=== PATIENT | male | born 1940 | race Caucasian/White ===

== ENCOUNTER → 2023-08-05 12:36 | Outpatient (BNVA) | payer OTHER, SELFPAY | PROVIDERS: Family Provider Emergency Medicine Emergency Medical Services; PCP Emergency Medicine Emergency Medical Services; Visit Provider Podiatrist Foot & Ankle Surgery | DX: L84 Corns and callosities (principal); L60.3 Nail dystrophy; M06.9 Rheumatoid arthritis, unspecified; L97.522 Non-pressure chronic ulcer of other part of left foot with fat layer exposed; S99.922A Unspecified injury of left foot, initial encounter; X58.XXXA Exposure to other specified factors, initial encounter | CPT/HCPCS: 11055; 99203 ==

== ENCOUNTER → 2023-08-17 10:57 | Outpatient (BNVA) | payer OTHER, SELFPAY | PROVIDERS: Family Provider Emergency Medicine Emergency Medical Services; PCP Emergency Medicine Emergency Medical Services; Visit Provider Podiatrist Foot & Ankle Surgery | DX: L84 Corns and callosities (principal); L60.3 Nail dystrophy; M06.9 Rheumatoid arthritis, unspecified; L97.522 Non-pressure chronic ulcer of other part of left foot with fat layer exposed | CPT/HCPCS: 99213 ==

== ENCOUNTER → 2023-09-13 13:01 | Outpatient (BNVA) | payer OTHER, SELFPAY | PROVIDERS: Family Provider Emergency Medicine Emergency Medical Services; PCP Emergency Medicine Emergency Medical Services; Visit Provider Podiatrist Foot & Ankle Surgery | DX: L84 Corns and callosities (principal); L60.3 Nail dystrophy; M06.9 Rheumatoid arthritis, unspecified; L97.522 Non-pressure chronic ulcer of other part of left foot with fat layer exposed | CPT/HCPCS: 99214 ==

== ENCOUNTER → 2023-10-06 09:36 | Day surgery (SDC) | payer OTHER, SELFPAY ==
--- NOTE | 2023-10-06 10:36 | SUR.PREOP ---
1010 patient here with son and wanting to speak to regarding pt's surgery today,brought pt and son to pre-op room to wait for Dr. Tomas(he is currently in OR) and instructed pt and son of this and verbalized understanding.1020 Dr Tomas in pre-op room talking to pt and son. 1025 pt and son are wanting to postpone surgery to another day. OR,PACU and admitting staff notified of this and all verbalized understanding
== END ==
PROVIDERS: PCP Emergency Medicine Emergency Medical Services; Visit Provider Podiatrist Foot & Ankle Surgery
DX: Z53.8 Procedure and treatment not carried out for other reasons (principal)
CPT/HCPCS: J2371; J2704

== ENCOUNTER 2023-11-30 14:21 | Inpatient (IN) | payer OTHER, SELFPAY ==
[2023-11-30] VITALS (9 sets, daily range): BP systolic 142–178; BP diastolic 78–96; PULSE 62–73; RESP 15–18; TEMP 36.3–36.8; O2SAT 90–96
--- NOTE | 2023-11-30 14:43 | XRR_ITS ---
PROCEDURE INFORMATION: Exam: XR Chest Exam date and time: 11/30/2023 3:16 PM Age: 83 years old Clinical indication: Cough and dyspnea; Additional info: Dyspnea/cough TECHNIQUE: Imaging protocol: Radiologic exam of the chest. Views: 1 view. COMPARISON: MR shoulder RT wo con* [id number] 04/17/2019 4:54 PM FINDINGS: Lungs: There is bilateral central peribronchial thickening and diffuse bilateral interstitial prominence. This could be an acute or chronic viral or atypical pneumonia. Some of this could be bronchitis or asthma. Some of this could be fibrosis. Otherwise, unremarkable. Pleural spaces: Unremarkable. No pleural effusion. No pneumothorax. Heart/Mediastinum: Unremarkable. No cardiomegaly. Bones/joints: Mild scoliosis with mild multilevel spondylosis. Severe bilateral shoulder arthritis. Otherwise, unremarkable. XR/XR chest 1V portable [id number] IMPRESSION: Bilateral peribronchial thickening and diffuse bilateral interstitial prominence. See above discussion.
--- NOTE | 2023-11-30 14:44 | ECG_ITS ---
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 Measurements Intervals [place] Rate: 76 P: 34 [place]: 154 QRS: -38 QRSD: 88 T: 142 QT: 395 QTc: 445 Interpretive Statements SINUS RHYTHM WITH OCCASIONAL VENTRICULAR PREMATURE COMPLEXES LEFT AXIS DEVIATION [QRS AXIS < -30] LEFT VENTRICULAR HYPERTROPHY AND ST-T CHANGE [VOLTAGE CRITERIA PLUS ST/T ABNORMALITY] No previous ECG available for comparison Electronically Signed On 11-30-2023 17:19:00 CDT by Daniel Lindsey M.D. [id number]
--- NOTE | 2023-11-30 14:53 | XRR_ITS ---
PROCEDURE INFORMATION: Exam: XR Left Knee Exam date and time: 11/30/2023 3:19 PM Age: 83 years old Clinical indication: Injury or trauma; Fall; Blunt trauma; Knee; Left TECHNIQUE: Imaging protocol: Radiologic exam of the left knee. Views: 3 views. COMPARISON: No relevant prior studies available. FINDINGS: Bones/joints: Abnormal extension of the left knee suggests soft tissue injury. 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 There is a space between the anterior portion of the femoral component of the arthroplasty and the tunica-biloxi femur measuring as much as 5 mm. This raises the possibility of loosening of this component of the arthroplasty. Other arthroplasty components are without complication. No fracture or vicente dislocation. Probable left knee joint effusion. Otherwise, unremarkable. Soft tissues: Possible thickening of the patellar tendon, so it could be injured. Otherwise, unremarkable soft tissues. Vasculature: Large amount of arterial calcification. XR/XR knee LT 3V* [id number] IMPRESSION: 1. Possible injury of the left patellar tendon. 2. Abnormal extension of the left knee suggests soft tissue injury. 3. Possible loosening femoral component left total knee arthroplasty. 4. Probable left knee joint effusion.
--- NOTE | 2023-11-30 14:56 | ED_ITS ---
HPI - Weakness 2 General: Chief complaint: Weakness Stated complaint: Fall/ Found on floor Time Seen by Provider: 11/30/23 14:27 Source: patient Mode of arrival: ambulatory History of Present Illness: 83-year-old male was found down in his h ome he been down on the floor for possibly several days. He had fallen been too weak to get up. Neighbors found him. His mouth is extremely dry he has areas that appear to have began to develop pressure ulcers on his buttock his heels and on his right hip. He is weak has difficult time ambulating he is aware of time place and person but still seems somewhat confused. He is not able to answer complicated patients. Son reported via phone to the nurse that he had spoken with him yesterday and he seemed okay. He states he does have difficulty communicating frequently at his baseline. He lives at home with an occasional assistance from family members. Complaint: generalized weakness Associated symptoms: Denies chest pain, chills, dysuria or fever(s) Review of Systems 2 Const: Denies: fever(s) or chills ENMT: Reports: throat pain Card: Denies: chest pain Resp: Denies: dyspnea GI: Denies: abdominal pain : Denies: dysuria, urinary frequency or urinary urgency Musc: Denies: neck pain or back pain Skin/Breast: Denies: rash PFSH ED 2 PFSH: Medical History (Updated 11/30/23 @ 18:04 by Smith Michael DO) Arthritis Rheumatoid arthritis Onychodystrophy Surgical History (Updated 11/30/23 @ 17:30 by Kiran Hardy MD) H/O knee surgery History of ankle surgery Physical Exam 2 Const: COMMON NORMALS: no acute distress GENERAL APPEARANCE: cooperative ORIENTATION/CONSCIOUSNESS: Yes awake HENMT: COMMON NORMALS: normocephalic, atraumatic and hearing grossly normal bilaterally HEAD & SCALP: normocephalic and atraumatic OTHER: Oral mucosa dry Resp: COMMON NORMALS: normal respiratory effort, No retractions, No use of accessory muscles and clear to auscultation bilaterally AUSCULTATION: clear to auscultation bilaterally Cardio: COMMON NORMALS: regular rate, regular rhythm and No murmurs present (Cardio) RATE: regular rate RHYTHM: regular rhythm GI: COMMON NORMALS: Soft to palpation and No hepatosplenomegaly present A USCULTATION: Yes normoactive bowel sounds PALPATION: Yes Soft to palpation, No Tenderness to palpation present (GI), No Guarding due to palpation present (GI) and Yes No hepatosplenomegaly present Extremity: OTHER: Early pressure ulcers at the heels and very slight redness on the right greater trochanter. Movement all extremities without pain Skin: OTHER: Skin breakdown along the gluteal cleft and on the scrotum. Blanching at the skin overlying the calcaneus bilaterally no skin breakdown at this point. Course 2 Vital Signs: Vital signs: Vital Signs Temperature 98.2 F 11/30/23 14:25 Pulse Rate 71 11/30/23 16:52 Respiratory Rate 16 11/30/23 14:25 Blood Pressure 156/92 11/30/23 16:52 Pulse Oximetry 93 11/30/23 16:52 Oxygen Delivery Me thod Room Air 11/30/23 16:52 MDM - Weakness Medical Decision Making Generalized weakness rhabdomyolysis hypernatremia. He is also has significant volume depletion. Will admit the patient. He does have some elevation of his liver enzymes as well as suspect this is from his volume depletion. Has been given IV fluids. CT of the chest abdomen pelvis shows a rectal mass suspicious for rectal carcinoma. This was all reviewed with Dr. Antony stephens written. Medical Records I reviewed the patient's medical records. Lab Data I reviewed the patient's lab results. 11/30/23 15:14 11/30/23 15:14 Radiology Impressions Chest X-Ray 11/30/23 14:43 IMPRESSION: Bilateral peribronchial thickening and diffuse bilateral interstitial prominence. See above discussion. Knee X-Ray 11/30/23 14:53 IMPRESSION: 1. Possible injury of the left patellar tendon. 2. Abnormal extension of the left knee suggests soft tissue injury. 3. Possible loosening femoral component left total knee arthroplasty. 4. Probable left knee joint effusion. Chest/Abdomen/Pelvis CT 11/30/23 16:10 IMPRESSION: No acute posttraumatic findings. IMPRESSION: 3.0 x 2.1 x 1.2 cm lobulated thickening in the left posterolateral rectal wall suggesting possible rectal carcinoma. Axial series 5, image 70, sagittal series 11, image 33. No acute posttraumatic findings. Head CT 11/30/23 16:10 IMPRESSION: 1. No acute intracranial findings. 2. Chronic changes as above. Laboratory Results WBC 9.29 10^3/uL (3.29-11.43) 11/30/23 15:14 RBC 5.72 10^6/uL (3.85-5.65) H 11/30/23 15:14 Hgb 16.80 g/dL (11.27-16.99) 11/30/23 15:14 Hct 53.3 % (37-53) H 11/30/23 15:14 MCV 93.2 fl (82-101) 11/30/23 15:14 MCH 29.4 pg (27-33) 11/30/23 15:14 MCHC 31.5 g/dL (30-55) 11/30/23 15:14 RDW 14.5 % (12.1-15.1) 11/30/23 15:14 Plt Count 251 10^3/cmm (157-399) 11/30/23 15:14 MPV 9.7 fL (7.4-10.4) 11/30/23 15:14 Neut % (Auto) 70.8 % 11/30/23 15:14 Lymph % (Auto) 13.9 % 11/30/23 15:14 [place] % (Auto) 14.7 % 11/30/23 15:14 Eos % (Auto) 0.1 % 11/30/23 15:14 Baso % (Auto) 0.3 % 11/30/23 15:14 Neut # (Auto) 6.57 10^3/uL (1.8-7.7) 11/30/23 15:14 Lymph # (Auto) 1.3 10^3/uL (0.8-4.8) 11/30/23 15:14 [place] # (Auto) 1.4 10^3/uL (0.2-0.9) H 11/30/23 15:14 Eos # (Auto) 0.0 10^3/uL (0.0-0.8) 11/30/23 15:14 Baso # (Auto) 0.0 10^3/uL (0.0-0.1) 11/30/23 15:14 Nucleated RBC % (auto) 0 % 11/30/23 15:14 Nucleated RBCs # 0.0 /100WBC 11/30/23 15:14 Sodium 154 mmol/L (136-145) H 11/30/23 15:14 Potassium 4.0 mmol/L (3.5-5.1) 11/30/23 15:14 Chloride 115 mmol/L (98-107) H 11/30/23 15:14 Carbon Dioxide 23 mmol/L (22-29) 11/30/23 15:14 Anion Gap 20.0 (5-19) H 11/30/23 15:14 BUN 82 mg/dL (8-23) H* 11/30/23 15:14 Creatinine 1.2 mg/dL (0.7-1.2) 11/30/23 15:14 GFR Calculation Not Reportable 11/30/23 15:14 Glucose 98 mg/dL (65-115) 11/30/23 15:14 Calculated Osmolality 343 mOsm/kg (285-295) H 11/30/23 15:14 Lactic Acid 2.4 mmol/L (0.5-2.2) H 11/30/23 15:14 Calcium 9.2 mg/dL (8.5-10.5) 11/30/23 15:14 Total Bilirubin 0.6 mg/dL (0.15-1.2) 11/30/23 15:14 AST 176 U/L (0-40) H 11/30/23 15:14 ALT 49 U/L (0-41) H 11/30/23 15:14 Alkaline Phosphatase 91 U/L (40-130) 11/30/23 15:14 Creatine Kinase 6712 U/L (39-308) H* 11/30/23 15:14 Troponin T Baseline 47 ng/L (0-15) H 11/30/23 15:14 Total Protein 7.3 g/dL (6.6-8.7) 11/30/23 15:14 Albumin 3.6 g/dL (3.5-5.2) 11/30/23 15:14 Globulin 3.7 g/dL (1.3-4.6) 11/30/23 15:14 All radiology interpretation(s) finalized by discharge Discharge Plan Discharge Patient Disposition: Admitted As Inpatient Clinical Impression: Rhabdomyolysis, Acute dehydration, Hypernatremia, Generalized weakness, Rectal mass Condition: Stable Prescriptions: No Action No Known Home Medications Referrals: Perfecto Amaro DO [Primary Care Provider] - Coding Level of Care Code ED Administrative Medical Director for Jolene Kinsey
[2023-11-30] MEDS: sodium chloride 0.9% 1,905.09 ML 1905.08999999999992 ML IV (15:09)
[2023-11-30 15:22] LABS: Basophils % 0.3 %; Eosinophils % 0.1 %; Hematocrit 53.3 % (37-53); Lymphocytes # 1.3 10^3/uL (0.8-4.8); Lymphocytes % 13.9 %; Mean Corpuscular HGB Conc 31.5 g/dL (30-55); Mean Corpuscular Hemoglobin 29.4 pg (27-33); Mean Corpuscular Volume 93.2 fl (82-101); Mean Platelet Volume 9.7 fL (7.4-10.4); Monocytes # 1.4 10^3/uL (0.2-0.9); Monocytes % 14.7 %; Neutrophils # 6.57 10^3/uL (1.8-7.7); Neutrophils % 70.8 %; Nucleated Red Blood Cells % 0 %; Platelet Count 251 10^3/cmm (157-399); Red Blood Count 5.72 10^6/uL (3.85-5.65); Red Cell Distribution Width 14.5 % (12.1-15.1); White Blood Count 9.29 10^3/uL (3.29-11.43)
[2023-11-30 15:43] LABS: Lactic Sepsis W/Reflex 2.4 mmol/L (0.5-2.2)
[2023-11-30 15:45] LABS: Alanine Aminotransferase 49 U/L (0-41); Albumin Level 3.6 g/dL (3.5-5.2); Alkaline Phosphatase 91 U/L (40-130); Aspartate Amino Transferase 176 U/L (0-40); Calcium 9.2 mg/dL (8.5-10.5); Carbon Dioxide 23 mmol/L (22-29); Chloride 115 mmol/L (98-107); Creatinine Clr Calc Pharmacy 43.0637; Globulin 3.7 g/dL (1.3-4.6); Glucose 98 mg/dL (65-115); Osmolality Calculated 343 mOsm/kg (285-295); Sodium 154 mmol/L (136-145); Total Bilirubin 0.6 mg/dL (0.15-1.2); Total Protein 7.3 g/dL (6.6-8.7); Troponin(5th) Baseline 47 ng/L (0-15)
--- NOTE | 2023-11-30 16:10 | CTR_ITS ---
PROCEDURE INFORMATION: Exam: CT Head Without Contrast Exam date and time: 11/30/2023 4:19 PM Age: 83 years old Clinical indication: Injury or trauma; Blunt trauma (contusions or hematomas); Patient HX: PT brought in per EMS. PT was found in the floor by his neighobr, neighbor had not seen him for a few days. Unsure how long, potentially in the floor since Wednesday, the patient is unsure. Bg 130. 300ml lr given. PT complaining of being weak and his throat being sore. No known injuries from fallling at this time. PT is able to move all extremities per EMS. ( end ) TECHNIQUE: Imaging protocol: Computed tomography of the head without contrast. Radiation optimization: All CT scans at this facility use at least one of these dose optimization techniques: automated exposure control; mA and/or kV adjustment per patient size (includes targeted exams where dose is matched to clinical indication); or iterative reconstruction. COMPARISON: No relevant prior studies available. RADIATION DOSE METRICS: Total DLP (mGy-cm): 1033.38 FINDINGS: Brain: Diffuse cerebral atrophy, consistent with patient's age. No hemorrhage. No evidence of acute territorial infarct. Multiple subcentimeter hypodensities at the bilateral basal ganglia compatible with chronic lacunar infarcts, possibly prominent perivascular spaces. Small focus of encephalomalacia at the right frontal lobe. Moderate background bilateral cerebral white matter hypoattenuation likely on the basis of chronic microvascular ischemic change. No mass effect. Cerebral ventricles: Ventricles are in proportion to the degree of atrophy. Paranasal sinuses: Visualized sinuses are unremarkable. No fluid levels. Mastoid air cells: Visualized mastoid air cells are well aerated. Orbital cavities: Bilateral lens replacement. Bones: Unremarkable. No acute fracture. Soft tissues: Unremarkable. Vasculature: Bilateral ICA and vertebral artery calcifications. CT/CT head wo con* [id number] IMPRESSION: 1. No acute intracranial findings. 2. Chronic changes as above.
--- NOTE | 2023-11-30 16:10 | CTR_ITS ---
PROCEDURE INFORMATION: Exam: CT Chest With Contrast; Diagnostic Exam date and time: 11/30/2023 4:24 PM Age: 83 years old Clinical indication: Injury or trauma; Generalized; Blunt trauma (contusions or hematomas); Injury details: PT brought in per EMS. PT was found in the floor by his neighobr, neighbor had not seen him for a few days. Unsure how long, potentially in the floor since Wednesday, the patient is unsure. Bg 130. 300ml lr given. PT complaining of being weak and his throat being sore. No known injuries from fallling at this time. PT is able to move all extremities per EMS. TECHNIQUE: Imaging protocol: Diagnostic computed tomography of the chest with contrast. Radiation optimization: All CT scans at this facility use at least one of these dose optimization techniques: automated exposure control; mA and/or kV adjustment per patient size (includes targeted exams where dose is matched to clinical indication); or iterative reconstruction. Contrast material: OMNI 350; Contrast volume: 80 ml; Contrast route: INTRAVENOUS (IV); COMPARISON: CR XR chest 1V portable [id number] 11/30/2023 3:16 PM RADIATION DOSE METRICS: Total DLP (mGy-cm): 302.2 FINDINGS: Lungs: Unremarkable. No consolidation. No masses. Pleural spaces: Right pleural calcification which could be secondary to previous empyema or hemothorax. Heart: Unremarkable. No cardiomegaly. No pericardial effusion. Coronary arteries: Severe calcified coronary artery disease. Lymph nodes: Unremarkable. No enlarged lymph nodes. Vasculature: Calcification of the thoracic aorta and/or great vessels consistent with atherosclerotic vessel disease. Bones/joints: Moderate thoracic spondylosis. Moderate right primary glenohumeral osteoarthritis. Moderate to severe left glenohumeral primary osteoarthritis. Soft tissues: Unremarkable. PROCEDURE INFORMATION: Exam: CT Abdomen And Pelvis With Contrast Exam date and time: 11/30/2023 4:24 PM Age: 83 years old Clinical indication: Injury or trauma; Generalized; Blunt trauma (contusions or hematomas); Injury details: PT brought in per EMS. PT was found in the floor by his neighobr, neighbor had not seen him for a few days. Unsure how long, potentially in the floor since Wednesday, the patient is unsure. Bg 130. 300ml lr given. PT complaining of being weak and his throat being sore. No known injuries from fallling at this time. PT is able to move all extremities per EMS. TECHNIQUE: Imaging protocol: Computed tomography of the abdomen and pelvis with contrast. Radiation optimization: All CT scans at this facility use at least one of these dose optimization techniques: automated exposure control; mA and/or kV adjustment per patient size (includes targeted exams where dose is matched to clinical indication); or iterative reconstruction. Contrast material: OMNI 350; Contrast volume: 80 ml; Contrast route: INTRAVENOUS (IV); COMPARISON: CR XR chest 1V portable [id number] 11/30/2023 3:16 PM RADIATION DOSE METRICS: Total DLP (mGy-cm): 417.2 FINDINGS: Liver: Normal. No mass. Gallbladder and bile ducts: Solitary gallstone within the gallbladder. Pancreas: Normal. No ductal dilation. Spleen: Normal. No splenomegaly. Adrenal glands: Normal. No mass. Kidneys and ureters: See Stomach and bowel finding. Stomach and bowel: 3.0 x 2.1 x 1.2 cm lobulated thickening in the left posterolateral rectal wall suggesting possible rectal carcinoma. Axial series 5, image 70, sagittal series 11, image 33. Appendix: No evidence of appendicitis. Intraperitoneal space: Unremarkable. No free air. No significant fluid collection. Vasculature: Calcification of the abdominal aorta and/or iliac arteries consistent with atherosclerotic vessel disease. 30% stenosis in the proximal celiac axis at the kink. Soft mural plaque in the posterior portion of the SMA 30% stenosis. Lymph nodes: Unremarkable. No enlarged lymph nodes. Urinary bladder: Unremarkable as visualized. Reproductive: Unremarkable as visualized. Bones/joints: Moderate to severe multilevel spine degenerative changes including degenerative disc disease, spondylosis and facet degenerative changes. Soft tissues: Unremarkable. CT/CT chest abdpel w/*[id number] IMPRESSION: No acute posttraumatic findings. IMPRESSION: 3.0 x 2.1 x 1.2 cm lobulated thickening in the left posterolateral rectal wall suggesting possible rectal carcinoma. Axial series 5, image 70, sagittal series 11, image 33. No acute posttraumatic findings.
[2023-11-30 16:11] LABS: Blood Urea Nitrogen 82 mg/dL (8-23); Creatine Phosphokinase 6712 U/L (39-308)
[2023-11-30] MEDS: iohexol 350 mg/mL 500 mL Btl (per mL) IV (16:30)
--- NOTE | 2023-11-30 16:44 | ECG_ITS ---
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 Measurements Intervals [place] Rate: 74 P: 44 [place]: 157 QRS: -38 QRSD: 93 T: 142 QT: 404 QTc: 451 Interpretive Statements SINUS RHYTHM WITH OCCASIONAL SUPRAVENTRICULAR PREMATURE COMPLEXES LEFT AXIS DEVIATION [QRS AXIS < -30] ST DEVIATION AND MODERATE T-WAVE ABNORMALITY, CONSIDER ANTEROLATERAL ISCHEMIA [-0.1+ mV T-WAVE IN V3-V6] Compared to ECG 11/30/2023 15:26:43 T-wave abnormality now present Possible ischemia now present Ventricular premature complex(es) no longer present Left ventricular hypertrophy no longer present ST (T wave) deviation no longer present Electronically Signed On 11-30-2023 17:22:14 CDT by Daniel Lindsey M.D. [id number]
[2023-11-30 17:05] LABS: Reflex Lactate Order REFLEX LACTIC ORDERD
--- NOTE | 2023-11-30 17:29 | P.HP_ITS ---
Providers/Chief Complaint 2 Primary Care Provider: Perfecto Amaro DO Chief Complaint: Fall/ Found on floor History of Present Illness Roger Traore is a 83 year old male with history of rheumatoid arthritis, was following up with podiatry, lives alone, has a son who lives in [facility], presented after sustaining a fall at home, his neighbors checked on him today found him on the floor and called EMS, as per the patient he felt roughly around Wednesday and then could not get up, patient is stating that are we treating him for taking a nap . He is able to move his extremities, able to answer simple questions, he is not endorsing chest pain, recent abdominal pain or diarrhea. Stating that he eats frozen food, normally does not cook for himself. His neighbors check on him. He told me that his son lives 200 miles away. 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 to allow him to stay in the waiting area tonight Review of Systems 2 General: Reports: ROS unobtainable due to medical condition Medications/Allergies Home Medications Medication Instructions Recorded Confirmed Last Taken Type No Known Home Medications 10/05/23 10/05/23 Unknown History Allergies Allergy/AdvReac Type Severity Reaction Status Date / Time No Known Allergies Allergy Verified 09/13/23 13:18 PFSH Acute 2 PFSH: Medical History Arthritis Rheumatoid arthritis Onychodystrophy Surgical History H/O knee surgery History of ankle surgery Vitals/I&O/Wt Last Vital Signs Temp 98.2 F 11/30/23 14:25 Pulse 71 11/30/23 16:52 Resp 16 11/30/23 14:25 BP 156/92 11/30/23 16:52 Pulse Ox 93 11/30/23 16:52 O2 Del Method Room Air 11/30/23 16:52 Weight last 48 hrs Weight 63.503 kg Physical Exam 2 Narrative: Cachectic, malnourished Sarcopenia Significant arthritis Joint deformity Awake and alert Able to answer simple questions Hypertensive Currently on room air Extremely dehydrated Abdomen soft Patient has stage I buttocks, sacral ulcer with superficial skin sloughed off with erythema Raw skin noted around ulcers as well S1, S2, bradycardia Data 11/30/23 15:14 11/30/23 15:14 Micro: Microbiology 11/30/23 15:03 Blood Culture - Preliminary Blood SPECIMEN COLLECTED 11/30/23 15:03 Blood Culture - Preliminary Blood SPECIMEN COLLECTED A&P Assessment and plan (1) Rectal mass: (2) Acute dehydration: (3) Hypernatremia: (4) Rhabdomyolysis: (5) Generalized weakness: (6) Decubitus ulcer of sacral area: Plan Rhabdomyolysis secondary to fall at home Continue aggressive IV fluid hydration Monitor kidney function correlate with urine output No signs of kidney injury Patient has history of arthritis which is debilitating Patient uses a walker and a cane at home Lives alone, Son has been trying to get help via [place] [employer] system to help his father Hypernatremia related to severe dehydration Start D5 half-normal saline Rectal mass: Concerning for malignancy Son is not sure if they would pursue histopathological diagnosis or go for chemotherapy considering debilitating rheumatoid arthritis CODE STATUS discussed with the son: He wants us to keep him full code until son arrives and talk with his father But stating that they might lean towards DNR status but does not want us to change at this point I will keep patient on full liquid diet Will place Myers catheter Patient likely will need assisted placement Patient not able to provide much history most of the information taken from previous notes, podiatry notes which showed that patient had fat layer exposed when he saw gray tender son was accompanying him, Son was called to get more history Attestations 2 Medical Necessity Statement*: More than 2 midnights anticipated Diagnoses Rectal mass K62.89 Acute dehydration E86.0 Hypernatremia E87.0 Rhabdomyolysis M62.82 Generalized weakness R53.1 Decubitus ulcer of sacral area L89.159
[2023-11-30 18:28] LABS: Troponin 5 2HR 39.08 ng/L (0-15)
[2023-11-30 18:33] LABS: Lactic Acid level (Lactate) 2.7 mmol/L (0.5-2.2)
[2023-11-30 18:38] LABS: Troponin 5 2HR Delta -7.92 ABS# (0-10)
[2023-11-30 19:12] LABS: Add Urine Microscopic? YES; Bilirubin Urine Neg (Negative); Blood Urine 3+ (Negative); Glucose Urine UA Norm (Normal); Ketones Urine 1+ (Negative); Leukocyte Esterase Urine Negative (Negative); Nitrate Urine Negative (Negative); Protein Urine Trace (Negative); Specific Gravity, Urine 1.015 (1.005-1.030); Urine Appearance Clear (CLEAR); Urine Color Yellow (Yellow); Urobilinogen Urine Norm (Negative); pH Urine 5 (5-7)
[2023-11-30 19:13] LABS: Add Urine Culture? No; Bacteria Urine TRACE /hpf; Hyaline Casts Urine 0-4 /lpf; RBC Urine 0-4 /hpf (0-2)
[2023-11-30 19:45] LABS: Procalcitonin 0.32 ng/mL (0-0.5)
--- NOTE | 2023-11-30 19:54 | USCV_ITS ---
Roger Traore Age: 83 Gender: M : 1940 Exam Date: 11/30/2023 21:14 Ordering Phys: Kiran Hardy MD Technologist: MARGI [place] [facility] [place]: syncope. BP: 155 / 94 HR: 58 Rhythm: Sinus rhythm with some strings of atrial fibrillation Technical Quality: Adequate MEASUREMENTS (Male / Female) Normal Values 2D ECHO LV Diastolic Diameter PLAX 3.8 cm 4.2 - 5.9 / 3.9 - 5.3 cm IVS Diastolic Thickness 2.0 cm 0.6 - 1.0 / 0.6 - 0.9 cm IVS Systolic Thickness 2.1 cm LVPW Diastolic Thickness 1.7 cm 0.6 - 1.0 / 0.6 - 0.9 cm LVPW Systolic Thickness 1.9 cm LVOT Diameter 1.7 cm LV Ejection Fraction 2D Teich 56.6 % LV Ejection Fraction MOD 2C 46.8 % LV Ejection Fraction 2C AL 49.8 % LA Diameter 3.8 cm LA Sys Volume AL 70.9 cm cubed LA Sys Volume Index AL 40.7 cm cubed/m squared Aorta at Sinotubular Diameter 2.8 cm IVC Diameter 1.1 cm M-MODE LA Ao Ratio MM 1.4 AV Cusp Separation MM 2.2 cm DOPPLER AV Peak Velocity 140.0 cm/s LVOT Peak Velocity 80.0 cm/s AV Area Cont Eq vti 1.8 cm squared AV Area Cont Eq pk 1.3 cm squared MV Peak Velocity 107.0 cm/s MV Area PHT 2.4 cm squared Mitral E to A Ratio 0.6 TV Peak Velocity 218.5 cm/s TR Peak Velocity 249.0 cm/s TR Peak Gradient 24.8 mmHg TV Peak E Velocity 42.0 cm/s Right Atrial Pressure 3.0 mmHg Pulmonary Artery Systolic Pressu 27.8 mmHg PV Peak Velocity 85.0 cm/s FINDINGS Left Ventricle Left ventricle is normal in size. LV systolic function is normal with EF of 55 to 60%. No regional wall motion abnormalities are seen. Grade 1 diastolic dysfunction. Right Ventricle Grossly normal Right Atrium Normal in size Left Atrium Dilated Mitral Valve Mild mitral annular calcification. Mild mitral regurgitation. Aortic Valve Aortic valve is thickened and calcified. No significant stenosis or regurgitation. Tricuspid Valve Insufficient TR jet to calculate RVSP Pulmonic Valve Not well visualized Pericardium Normal Aorta Normal in size IVC Appears to be normal CONCLUSIONS LV systolic function is normal with EF of 55-60% Grade 1 diastolic dysfunction Left atrial dilation Mild mitral regurgitation No comparison studies are available. Daniel Lindsey MD (Electronically Signed) Final Date: 01 December 2023 09:33 S
[2023-11-30 20:46] LABS: D Dimer >= 20.00 ug/mLFEU (0-0.59)
--- NOTE | 2023-11-30 21:12 | ECG_ITS ---
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 Measurements Intervals [place] Rate: 62 P: 51 CO: 146 QRS: -37 QRSD: 92 T: 178 QT: 417 QTc: 426 Interpretive Statements SINUS RHYTHM WITH OCCASIONAL SUPRAVENTRICULAR PREMATURE COMPLEXES LEFT AXIS DEVIATION [QRS AXIS < -30] LEFT VENTRICULAR HYPERTROPHY AND ST-T CHANGE [VOLTAGE CRITERIA PLUS ST/T ABNORMALITY] POSSIBLE SEPTAL MYOCARDIAL INFARCTION , OF INDETERMINATE AGE [30 ms Q WAVE IN V1/V2] Compared to ECG 11/30/2023 17:11:38 Left ventricular hypertrophy now present ST (T wave) deviation now present Myocardial infarct finding now present T-wave abnormality no longer present Possible ischemia no longer present Electronically Signed On 12-01-2023 10:33:22 CDT by Daniel Lindsey M.D. [email or web address]
[2023-11-30 21:16] LABS: Estmated Average Glucose 120; Hemoglobin A1C 5.8 % (4.0-6.0)
[2023-11-30 21:36] LABS: Carcinoembryonic Antigen 2.4 ng/mL (0.0-4.7); Thyroid Stimulating Hormone 1.47 uIU/mL (0.27-4.20)
[2023-11-30 21:46] LABS: Sodium 156 mmol/L (136-145)
[2023-11-30 22:34] LABS: Troponin 5 6HR 43.25 ng/L (0-15); Troponin 5 6HR Delta -3.75 ng/L (0-12)
[2023-11-30 22:35] LABS: Sodium 153 mmol/L (136-145)
[2023-11-30] MEDS: lactulose oral liq 20 gm/30 mL UDC 10 GM PO (22:42)
[2023-11-30] MEDS: dextrose 5%-sod chloride 0.45% 1,000 ML 100 ML IV (22:43)
[2023-11-30] MEDS: bacitracin ointment Pkt 1 EACH TOPICAL (22:43)
[2023-11-30] MEDS: heparin 5,000 unit/mL INJ 1 mL 5000 UNIT SUBCUT (22:43)
[2023-11-30 23:32] LABS: PSA Screen - Urology 2.49 ng/mL (0-4)
--- NOTE | 2023-11-30 23:45 | PC.NURSE ---
Pt states he has hearing aids but doesn't wear them. Hearing aids not at bedside.
[2023-12-01] VITALS (7 sets, daily range): BP systolic 130–149; BP diastolic 72–85; PULSE 55–68; RESP 16–19; TEMP 36.3–36.6; O2SAT 94–96
--- NOTE | 2023-12-01 00:33 | PC.NURSE ---
BATH AND WOUND CARE This nurse and ROSLYN Bell bathed patient thoroughly with soap and water. During the bath this greeting card writer noticed the patient had blanchable red areas on the bony prominences of both shoulders and hips. One optifoam was applied to each red area and dated and initialed. The patient's groin and sacrum were noted to be severely macerated and red, and tender to the touch. Two unstageable pressure ulcers were found on the medial left and right buttock, covered with watkins slough. An raised, black area was found on the underside of the patient's scrotum. This area oozed sanguineous drainage, the unstageable sores oozed purulent drainage. All areas were washed gently with soap and water, flushed with saline flushes, and patted dry. Bacitracin cream was applied as ordered to all open/macerated areas, and the areas were then covered with 2 small optifoams and one sacrum optifoam, all of which were initialed and dated. An extra packet of bacitracin cream was required to completely cover all open areas. The patient stated that the area is quite sore, especially when touching or wiping, and that he has never had these sores before.
[2023-12-01 05:23] LABS: Vitamin B12 523 pg/mL (232-1245)
[2023-12-01 05:43] LABS: Basophils % 0.3 %; Eosinophils # 0.1 10^3/uL (0.0-0.8); Eosinophils % 0.5 %; Hematocrit 43.2 % (37-53); Lymphocytes # 1.6 10^3/uL (0.8-4.8); Lymphocytes % 17.6 %; Mean Corpuscular HGB Conc 31.9 g/dL (30-55); Mean Corpuscular Hemoglobin 29.3 pg (27-33); Mean Corpuscular Volume 91.7 fl (82-101); Mean Platelet Volume 9.7 fL (7.4-10.4); Monocytes % 10.9 %; Neutrophils # 6.45 10^3/uL (1.8-7.7); Neutrophils % 70.4 %; Nucleated Red Blood Cells % 0 %; Platelet Count 213 10^3/cmm (157-399); Red Blood Count 4.71 10^6/uL (3.85-5.65); Red Cell Distribution Width 14.5 % (12.1-15.1); White Blood Count 9.18 10^3/uL (3.29-11.43)
[2023-12-01 06:04] LABS: Anion Gap 12.2 (5-19); Blood Urea Nitrogen 53 mg/dL (8-23); Calcium 8.2 mg/dL (8.5-10.5); Carbon Dioxide 23 mmol/L (22-29); Chloride 118 mmol/L (98-107); Creatinine Clr Calc Pharmacy 64.4191; Glucose 146 mg/dL (65-115); Magnesium 2.4 mg/dL (1.7-2.3); Osmolality Calculated 327 mOsm/kg (285-295); Phosphorus 2.5 mg/dL (2.5-4.5); Potassium 3.2 mmol/L (3.5-5.1); Sodium 150 mmol/L (136-145)
[2023-12-01 06:37] LABS: Creatine Phosphokinase 2398 U/L (39-308)
[2023-12-01] MEDS: heparin 5,000 unit/mL INJ 1 mL 5000 UNIT SUBCUT ×2 (08:59→21:07)
[2023-12-01] MEDS: sennosides-docusate Tablet 2 TAB PO ×2 (08:59→18:38)
[2023-12-01] MEDS: dextrose 5%-sod chloride 0.45% 1,000 ML 100 ML IV ×2 (08:59→18:38)
[2023-12-01] MEDS: cefTRIAXone 1,000 MG in sodium chloride 0.9% (plus) 50 ML 100 MG IV (08:59)
[2023-12-01] MEDS: bacitracin ointment Pkt 1 EACH TOPICAL ×3 (09:52→21:07)
--- NOTE | 2023-12-01 11:11 | PM.PN ---
Subjective Subjective: Patient this morning is awake and alert He is able to tell me all the details how he fell, family at the bedside Had a detailed discussion regarding CT abdomen pelvis findings, goals of care whether they would opt for home health versus senior care I saw patient again after an hour, patient stating that he probably would not pursue any chemotherapy or investigative studies considering the fact he is already weak, lives alone, he is okay with senior care placement for now, regarding he would consider hospice in future he will discuss further with his son and let us know Vitals/I&O/Wt Last Vital Signs Temp 97.7 F 12/01/23 08:00 Pulse 55 L 12/01/23 08:00 Resp 17 12/01/23 08:00 BP 148/77 12/01/23 08:00 Pulse Ox 95 12/01/23 08:00 O2 Del Method Room Air 12/01/23 08:00 11/30/23 12/01/23 12/01/23 22:59 06:59 14:59 Intake Total 2145.09 / 2145.09 1170 / 1170 Output Total 800 / 800 Balance 2145.09 / 2145.09 -800 / 1345.09 1170 / 1170 Weight last 48 hrs Weight 63.049 kg Weight 63.503 kg Physical Exam Narrative: Patient is malnourished Dehydrated Awake and alert Nonfocal neuroexam GCS 15 Abdomen soft S1, S2 Sinus bradycardia Awake and alert able to answer all my questions appropriately He is also cracking jokes and being sarcastic with his son Urinary Catheter Management: Myers: Cath Placed During This Visit: yes Reason for Continuing Indwelling Catheter: Acute Urinary Retention or Obstruction Urinary Catheter Date of Insertion: 11/30/23 Urinary Catheter Time of Insertion: 18:45 Data 12/01/23 05:08 12/01/23 05:08 Micro: Microbiology 11/30/23 15:03 Blood Culture - Preliminary Blood SPECIMEN COLLECTED 11/30/23 15:03 Blood Culture - Preliminary Blood SPECIMEN COLLECTED A&P Assessment and plan (1) Rectal mass: (2) Acute dehydration: (3) Hypernatremia: (4) Rhabdomyolysis: (5) Decubitus ulcer of sacral area: (6) Ulcer of left foot with fat layer exposed: (7) Generalized weakness: (8) Metabolic encephalopathy: Plan Rhabdomyolysis: Improving with IV fluid hydration which I will continue for now Hypernatremia: Improving, continue D5, current sodium today 150 High D-dimer related to underlying cancer Rectal mass: Patient and son both agreed with conservative management they are not pursuing any histopathological diagnosis, he would not consider an ideal candidate for chemotherapy or radiotherapy Patient is agreeable for senior care placement he may consider hospice if he gets worse CODE STATUS: Discussed in detail, DNR/DNI Case management updated regarding senior care placement Sinus bradycardia: Avoid AV bakari blocking agents, echo unremarkable, no active chest pain Metabolic encephalopathy related to dehydration and underlying rectal cancer: Improving Attestations Medical Necessity Statement*: Continue medical management Diagnoses Rectal mass K62.89 Acute dehydration E86.0 Hypernatremia E87.0 Rhabdomyolysis M62.82 Decubitus ulcer of sacral area L89.159 Ulcer of left foot with fat layer exposed L97.522 Generalized weakness R53.1 Metabolic encephalopathy G93.41
[2023-12-01] MEDS: morphine 4 mg/mL SDV 1 mL 2 MG IVP (16:23)
[2023-12-02] VITALS (7 sets, daily range): BP systolic 142–155; BP diastolic 70–83; PULSE 50–63; RESP 16–18; TEMP 36.2–36.7; O2SAT 94–96; BMI 22.0
[2023-12-02] MEDS: dextrose 5%-sod chloride 0.45% 1,000 ML 100 ML IV (04:13)
[2023-12-02 06:13] LABS: Basophils % 0.4 %; Eosinophils # 0.2 10^3/uL (0.0-0.8); Eosinophils % 2.5 %; Hematocrit 39.9 % (37-53); Lymphocytes # 2.2 10^3/uL (0.8-4.8); Lymphocytes % 22.4 %; Mean Corpuscular HGB Conc 32.1 g/dL (30-55); Mean Corpuscular Hemoglobin 29.5 pg (27-33); Mean Corpuscular Volume 91.9 fl (82-101); Mean Platelet Volume 9.8 fL (7.4-10.4); Monocytes # 0.8 10^3/uL (0.2-0.9); Monocytes % 8.4 %; Neutrophils # 6.37 10^3/uL (1.8-7.7); Neutrophils % 65.5 %; Nucleated Red Blood Cells % 0 %; Platelet Count 177 10^3/cmm (157-399); Red Blood Count 4.34 10^6/uL (3.85-5.65); Red Cell Distribution Width 13.9 % (12.1-15.1); White Blood Count 9.73 10^3/uL (3.29-11.43)
[2023-12-02 06:38] LABS: Lactic Sepsis W/Reflex 1.4 mmol/L (0.5-2.2)
[2023-12-02 06:43] LABS: Anion Gap 12.4 (5-19); Blood Urea Nitrogen 20 mg/dL (8-23); Carbon Dioxide 24 mmol/L (22-29); Chloride 109 mmol/L (98-107); Creatinine Clr Calc Pharmacy 65.4776; Glucose 108 mg/dL (65-115); Osmolality Calculated 297 mOsm/kg (285-295); Potassium 3.4 mmol/L (3.5-5.1); Sodium 142 mmol/L (136-145)
[2023-12-02 07:05] LABS: Creatine Phosphokinase 970 U/L (39-308)
[2023-12-02] MEDS: bacitracin ointment Pkt 1 EACH TOPICAL (08:47)
[2023-12-02] MEDS: sennosides-docusate Tablet 2 TAB PO ×2 (08:47→17:16)
[2023-12-02] MEDS: heparin 5,000 unit/mL INJ 1 mL 5000 UNIT SUBCUT ×2 (08:48→20:04)
[2023-12-02] MEDS: cefTRIAXone 1,000 MG in sodium chloride 0.9% (plus) 50 ML 100 MG IV (08:48)
--- NOTE | 2023-12-02 09:51 | P.PN_ITS ---
Subjective 2 Subjective: Patient was sitting in a chair Eating breakfast No overnight events CK improving Good urine output Hemodynamically stable Patient is agreeable for jail placement He has not made his decision regarding hospice versus pursuing chemotherapy however he has changes goals of care to DNR/DNI Vitals/I&O/Wt Last Vital Signs Temp 97.9 F 12/02/23 07:35 Pulse 60 12/02/23 08:19 Resp 18 12/02/23 08:19 BP 147/80 12/02/23 07:35 Pulse Ox 96 12/02/23 08:19 O2 Del Method Room Air 12/02/23 08:19 12/01/23 12/02/23 12/02/23 22:59 06:59 14:59 Intake Total 1515 / 3045 1078.333 / 4123.333 170 / 170 Output Total 220 / 220 800 / 1020 Balance 1295 / 2825 278.333 / 3103.333 170 / 170 Weight last 48 hrs Weight 65.771 kg Weight 63.049 kg Weight 63.503 kg Physical Exam 2 Narrative: Signs of dehydration present Improving Scrotal area hematoma Skin sloughing noted inferior border of the scrotal area Patient is able to answer my questions appropriate Hemodynamic stable Eating breakfast Patient is two-person assist Myers catheter in place S1, S2 No focal deficit Urinary Catheter Management: Myers: Cath Placed During This Visit: yes Reason for Continuing Indwelling Catheter: Assist Healing of Perineal & Sacral Wounds- Incontinent Patients Urinary Catheter Date of Insertion: 11/30/23 Urinary Catheter Time of Insertion: 18:45 Data 12/02/23 05:50 12/02/23 05:50 Micro: Microbiology 11/30/23 15:03 Blood Culture - Preliminary Blood NEGATIVE TO DATE 11/30/23 15:03 Blood Culture - Preliminary Blood Staphylococcus epidermidis A&P Assessment and plan (1) Rectal mass: (2) Acute dehydration: (3) Hypernatremia: (4) Rhabdomyolysis: (5) Decubitus ulcer of sacral area: (6) Ulcer of left foot with fat layer exposed: (7) Metabolic encephalopathy: (8) Generalized weakness: (9) Scrotal hematoma: Plan Hypernatremia: Improved Can discontinue IV fluids I will change IV fluids to normal saline only Signs of dehydration improving with IV fluid Lactic acid is normal Significant weakness two-person assist will need jail placement Patient is not sure whether he would opt for hospice versus pursuing histopathological diagnosis and chemo Considering significant deconditioning and difficult social dynamics he might opt for conservative management Rhabdomyolysis: Improving CPK 970 Hypokalemia: Improved Echo showed preserved action fraction DNR/DNI Check TSH check B12 Debilitating rheumatoid arthritis Scrotal area hematoma, sacral ulcer, applying bacitracin, Once daily dressing change with Optifoam Rectal cancer: Patient will further discuss with his son today to decide whether they would opt for histopathological diagnosis, evaluation for chemoradiotherapy Attestations 2 Medical Necessity Statement*: Continue medical management Diagnoses Rectal mass K62.89 Acute dehydration E86.0 Hypernatremia E87.0 Rhabdomyolysis M62.82 Decubitus ulcer of sacral area L89.159 Ulcer of left foot with fat layer exposed L97.522 Metabolic encephalopathy G93.41 Generalized weakness R53.1 Scrotal hematoma S30.22XA
[2023-12-02] MEDS: potassium chloride ER 20 mEq Tablet 40 MEQ PO (12:59)
[2023-12-02] MEDS: sodium chloride 0.9% 1,000 ML 75 ML IV (14:39)
[2023-12-02] MEDS: nystatin powder 15 gm Btl 1 APPLIC TOPICAL (17:15)
[2023-12-03] VITALS: BP 179/85; PULSE 56; RESP 18; TEMP 36.4; O2SAT 97
[2023-12-03] MEDS: hyDRALAzine 20 mg/mL INJ 1 mL 5 MG IVP (00:41)
[2023-12-03 04:00] VITALS: BP 174/79; PULSE 63; RESP 18; TEMP 36.6; O2SAT 97
[2023-12-03] MEDS: sodium chloride 0.9% 1,000 ML 75 ML IV (04:09)
[2023-12-03 05:24] LABS: Basophils % 0.3 %; Eosinophils # 0.2 10^3/uL (0.0-0.8); Eosinophils % 1.6 %; Hematocrit 41.8 % (37-53); Lymphocytes % 20.2 %; Mean Corpuscular HGB Conc 32.3 g/dL (30-55); Mean Corpuscular Hemoglobin 29.3 pg (27-33); Mean Corpuscular Volume 90.9 fl (82-101); Mean Platelet Volume 10.2 fL (7.4-10.4); Monocytes # 0.8 10^3/uL (0.2-0.9); Monocytes % 8.2 %; Neutrophils # 6.75 10^3/uL (1.8-7.7); Neutrophils % 68.8 %; Nucleated Red Blood Cells % 0 %; Platelet Count 194 10^3/cmm (157-399); Red Cell Distribution Width 13.8 % (12.1-15.1); White Blood Count 9.83 10^3/uL (3.29-11.43)
[2023-12-03 05:42] LABS: Anion Gap 12.7 (5-19); Blood Urea Nitrogen 11 mg/dL (8-23); Calcium 8.1 mg/dL (8.5-10.5); Carbon Dioxide 24 mmol/L (22-29); Chloride 111 mmol/L (98-107); Glucose 88 mg/dL (65-115); Osmolality Calculated 297 mOsm/kg (285-295); Potassium 3.7 mmol/L (3.5-5.1); Sodium 144 mmol/L (136-145)
[2023-12-03 05:48] LABS: Creatinine Clr Calc Pharmacy 66.6948
[2023-12-03 07:48] VITALS: BP 158/72; PULSE 59; RESP 17; TEMP 36.5; O2SAT 95
[2023-12-03] MEDS: bacitracin ointment Pkt 1 EACH TOPICAL (09:38)
[2023-12-03] MEDS: nystatin powder 15 gm Btl 1 APPLIC TOPICAL (09:38)
[2023-12-03] MEDS: sennosides-docusate Tablet 2 TAB PO (09:39)
[2023-12-03] MEDS: heparin 5,000 unit/mL INJ 1 mL 5000 UNIT SUBCUT (09:39)
--- NOTE | 2023-12-03 11:15 | P.DS_ITS ---
Discharge Providers Date of Admission: 11/30/23 18:40 Date of Discharge: December 03, 2023 Attending Provider at Admission: Kiran Hardy MD Attending Provider at Discharge: Kiran Hardy MD Primary Care Provider: Perfecto Amaro DO Diagnoses at Discharge Discharge Diagnosis (1) Rectal mass: Status: Acute (2) Acute dehydration: Status: Acute (3) Hypernatremia: Status: Acute (4) Rhabdomyolysis: Status: Acute (5) Decubitus ulcer of sacral area: Status: Acute (6) Ulcer of left foot with fat layer exposed: Status: Acute (7) Metabolic encephalopathy: Status: Acute (8) Generalized weakness: Status: Acute (9) Scrotal hematoma: Status: Acute Reason for Visit Reason for Visit: Fall/ Found on floor Hospital Course Hospital Course 83-year-old male who presented to the hospital for sustaining a fall at home. Unable checked on him on Wednesday and found him on the floor apparently patient f ell on Wednesday, he lives alone, he owns a 3 bedroom house, son lives in [facility], patient was brought in with severe dehydration, dehydration related lactic acidemia, he was mildly confused as well, there were no signs of stroke, he was diagnosed with rhabdomyolysis, severe dehydration, CT scan of abdomen pelvis was done which showed rectal thickening concerning for rectal cancer, patient was given aggressive IV fluids, next day patient perked up and was communicating with the physician nursing staff and his son. Had multiple meetings with the patient and his son, goals of care were discussed, we discussed active conditions, rectal thickening possibility of cancer his candidacy for chemotherapy, patient is two-person assist, with poor appetite and signs of dehydration and sarcopenia, he will not be considered a very good candidate for chemotherapy, I gave both options to the patient and his son if they wanted to pursue histopathological diagnosis and chemo but they decided w ith conservative management in fact they are leaning towards hospice care in case he gets worse. Son was planning for home health but considering his significant weakness requiring 2 person assist decision was made to discharge him to [facility]. Patient is experiencing sundowning delirium, signs of dehydration improved, CBC BMP unremarkable. He remained hemodynamically stable, gets bradycardia mostly at nighttime most likely consistent with sleep apnea. Will also give him hospice referral at the time of discharge. manpower development specialist manager to work with the [place] to set up SNF and hospice referral. Physical Exam Narrative: Cachectic, malnourished Sarcopenia Fluctuant mentation Nonfocal neuroexam Hemodynamically stable On room air Pleasant cooperative Urinary Catheter Management: Myers: Cath Placed During This Visit: yes Reason for Continuing Indwelling Catheter: Assist Healing of Perineal & Sacral Wounds- Incontinent Patients Urinary Catheter Date of Insertion: 11/30/23 Urinary Catheter Time of Insertion: 18:45 Discharge Data Studies Completed and Pending Completed Studies During Hospitalization Category Date Time Status CT chest abdomen pelvis [CT chest abdpel w/*[id number] Cat Scan 11/30/23 16:10 Completed ] Stat CT head wo con* [id number] Stat Cat Scan 11/30/23 16:10 Completed XR chest 1V portable [id number] Stat Exams 11/30/23 14:43 Completed XR knee LT 3V* [id number] Stat Exams 11/30/23 14:53 Completed CV. echo complete* [id number] Routine Ultrasound 11/30/23 19:54 Completed Pending at discharge Category Date Time Status Blood Culture Stat Lab 11/30/23 15:03 Results Radiology Impressions Chest X-Ray 11/30/23 14:43 IMPRESSION: Bilateral peribronchial thickening and diffuse bilateral interstitial prominence. See above discussion. Knee X-Ray 11/30/23 14:53 IMPRESSION: 1. Possible injury of the left patellar tendon. 2. Abnormal extension of the left knee suggests soft tissue injury. 3. Possible loosening femoral component left total knee arthroplasty. 4. Probable left knee joint effusion. Chest/Abdomen/Pelvis CT 11/30/23 16:10 IMPRESSION: No acute posttraumatic findings. IMPRESSION: 3.0 x 2.1 x 1.2 cm lobulated thickening in the left posterolateral rectal wall suggesting possible rectal carcinoma. Axial series 5, image 70, sagittal series 11, image 33. No acute posttraumatic findings. Head CT 11/30/23 16:10 IMPRESSION: 1. No acute intracranial findings. 2. Chronic changes as above. Laboratory Results WBC 9.83 10^3/uL (3.29-11.43) 12/03/23 04:37 RBC 4.60 10^6/uL (3.85-5.65) 12/03/23 04:37 Hgb 13.50 g/dL (11.27-16.99) 12/03/23 04:37 Hct 41.8 % (37-53) 12/03/23 04:37 MCV 90.9 fl (82-101) 12/03/23 04:37 MCH 29.3 pg (27-33) 12/03/23 04:37 MCHC 32.3 g/dL (30-55) 12/03/23 04:37 RDW 13.8 % (12.1-15.1) 12/03/23 04:37 Plt Count 194 10^3/cmm (157-399) 12/03/23 04:37 MPV 10.2 fL (7.4-10.4) 12/03/23 04:37 Neut % (Auto) 68.8 % 12/03/23 04:37 Lymph % (Auto) 20.2 % 12/03/23 04:37 [place] % (Auto) 8.2 % 12/03/23 04:37 Eos % (Auto) 1.6 % 12/03/23 04:37 Baso % (Auto) 0.3 % 12/03/23 04:37 Neut # (Auto) 6.75 10^3/uL (1.8-7.7) 12/03/23 04:37 Lymph # (Auto) 2.0 10^3/uL (0.8-4.8) 12/03/23 04:37 [place] # (Auto) 0.8 10^3/uL (0.2-0.9) 12/03/23 04:37 Eos # (Auto) 0.2 10^3/uL (0.0-0.8) 12/03/23 04:37 Baso # (Auto) 0.0 10^3/uL (0.0-0.1) 12/03/23 04:37 Nucleated RBC % (auto) 0 % 12/03/23 04:37 Nucleated RBCs # 0.0 /100WBC 12/03/23 04:37 D-Dimer >= 20.00 ug/mLFEU (0-0.59) H 11/30/23 15:14 Sodium 144 mmol/L (136-145) 12/03/23 04:37 Potassium 3.7 mmol/L (3.5-5.1) 12/03/23 04:37 Chloride 111 mmol/L (98-107) H 12/03/23 04:37 Carbon Dioxide 24 mmol/L (22-29) 12/03/23 04:37 Anion Gap 12.7 (5-19) 12/03/23 04:37 BUN 11 mg/dL (8-23) 12/03/23 04:37 Creatinine 0.4 mg/dL (0.7-1.2) L 12/03/23 04:37 GFR Calculation Not Reportable 12/03/23 04:37 Glucose 88 mg/dL (65-115) 12/03/23 04:37 Estimat Average Glucose 120 11/30/23 15:14 Hemoglobin A1c 5.8 % (4.0-6.0) 11/30/23 15:14 Calculated Osmolality 297 mOsm/kg (285-295) H 12/03/23 04:37 Lactic Acid 1.4 mmol/L (0.5-2.2) 12/02/23 05:50 Lactic Acid (Sepsis) 2.7 mmol/L (0.5-2.2) H 11/30/23 17:53 Calcium 8.1 mg/dL (8.5-10.5) L 12/03/23 04:37 Phosphorus 2.5 mg/dL (2.5-4.5) 12/01/23 05:08 Magnesium 2.4 mg/dL (1.7-2.3) H 12/01/23 05:08 Total Bilirubin 0.6 mg/dL (0.15-1.2) 11/30/23 15:14 AST 176 U/L (0-40) H 11/30/23 15:14 ALT 49 U/L (0-41) H 11/30/23 15:14 Alkaline Phosphatase 91 U/L (40-130) 11/30/23 15:14 Creatine Kinase 970 U/L (39-308) H* 12/02/23 05:50 Troponin T Baseline 47 ng/L (0-15) H 11/30/23 15:14 Troponin T 120 Minute 39.08 ng/L (0-15) H 11/30/23 17:53 Delta Troponin T -7.92 ABS# (0-10) L 11/30/23 17:53 Troponin T Hi Sens 6Hr 43.25 ng/L (0-15) H 11/30/23 21:59 Troponin T Hi Sens 6Hr Delta -3.75 ng/L (0-12) L 11/30/23 21:59 C-Reactive Protein 55.0 mg/L (0.0-4.9) H 12/01/23 05:08 Total Protein 7.3 g/dL (6.6-8.7) 11/30/23 15:14 Albumin 3.6 g/dL (3.5-5.2) 11/30/23 15:14 Globulin 3.7 g/dL (1.3-4.6) 11/30/23 15:14 Carcinoembryonic Ag 2.4 ng/mL (0.0-4.7) 11/30/23 17:53 PSA Screen 2.49 ng/mL (0-4) 11/30/23 17:53 Vitamin B12 523 pg/mL (232-1245) 11/30/23 17:53 Procalcitonin 0.32 ng/mL (0-0.5) 11/30/23 17:53 TSH 1.47 uIU/mL (0.27-4.20) 11/30/23 17:53 Urine Color Yellow (Yellow) 11/30/23 18:25 Urine Appearance Clear (CLEAR) 11/30/23 18:25 Urine pH 5 (5-7) 11/30/23 18:25 Ur Specific Jackpot 1.015 (1.005-1.030) 11/30/23 18:25 Urine Protein Trace (Negative) 11/30/23 18:25 Urine Glucose (UA) Norm (Normal) 11/30/23 18:25 Urine Ketones 1+ (Negative) H 11/30/23 18:25 Urine Blood 3+ (Negative) H 11/30/23 18:25 Urine Nitrate Negative (Negative) 11/30/23 18:25 Urine Bilirubin Neg (Negative) 11/30/23 18:25 Urine Urobilinogen Norm mg/dL (Negative) 11/30/23 18:25 Ur Leukocyte Esterase Negative (Negative) 11/30/23 18:25 Urine RBC 0-4 /hpf (0-2) H 11/30/23 18:25 Urine WBC None /hpf (0-5) 11/30/23 18:25 Ur Squamous Epith Cells None /hpf (0-5) 11/30/23 18:25 Amorphous Sediment Not Reportable 11/30/23 18:25 Urine Bacteria Trace /hpf (NONE) 11/30/23 18:25 Hyaline Casts 0-4 /lpf H 11/30/23 18:25 Vitals Last Vital Signs Temp 97.7 F 12/03/23 07:48 Pulse 59 L 12/03/23 07:48 Resp 17 12/03/23 07:48 BP 158/72 12/03/23 07:48 Pulse Ox 95 12/03/23 07:48 O2 Del Method Room Air 12/03/23 07:48 Discharge Plan Discharge Patient Disposition: Xfer SNF Condition: Fair Prescriptions: New morphine 15 mg tablet 15 mg PO BID PRN (Reason: pain) Qty: 10 0RF acetaminophen 500 mg Tablet 500 mg PO Q4H PRN (Reason: fever) Qty: 30 0RF nystatin [Nystop] 100,000 unit/gram Powder 1 applic topical BID Qty: 15 0RF amlodipine 5 mg tablet 5 mg PO DAILY Qty: 60 0RF lisinopril 10 mg tablet 10 mg PO DAILY Qty: 60 0RF tamsulosin 0.4 mg capsule 0.4 mg PO DAILY Qty: 60 0RF sennosides-docusate sodium [Stool Softener-Laxative] 8.6-50 mg Tablet 2 tab PO BEDTIME Qty: 30 0RF bacitracin 500 unit/gram Packet 500 unit topical DAILY Qty: 144 0RF Rx Instructions: Apply around scrotal area, sacral area No Action No Known Home Medications Discharge Orders: Discharge Order (Routine); Ordered 12/03/23 Ordered By: Kiran Hardy Referrals: Perfecto Amaro DO [Primary Care Provider] - Discharge Attestations Time Spent in Discharge Care*: greater than 30 min Quality Metrics Clinical Quality Measures [ No reported AMI, CVA or VTE this stay] Coding Level of Care Code Acute Code for Chg Fwd Diagnoses Rectal mass K62.89 Acute dehydration E86.0 Hypernatremia E87.0 Rhabdomyolysis M62.82 Decubitus ulcer of sacral area L89.159 Ulcer of left foot with fat layer exposed L97.522 Metabolic encephalopathy G93.41 Generalized weakness R53.1 Scrotal hematoma S30.22XA
[2023-12-03 11:39] VITALS: BP 137/74; PULSE 68; RESP 16; TEMP 36.8; O2SAT 95
[2023-12-03 12:38] LABS: SARS Covid-2 Antigen negative (Negative)
--- NOTE | 2023-12-03 13:10 | PC.SOCIAL ---
IMM Updated Updated pt's son on IMM. No questions voiced. Provided pt a copy. Initialed, dated, & timed a copy & placed in chart.
[2023-12-03 15:47] VITALS: BP 152/81; PULSE 59; RESP 18; TEMP 36.8; O2SAT 97
[2023-12-03 17:42] VITALS: BP 152/81; PULSE 59; RESP 18; TEMP 36.8; O2SAT 97
== END 2023-12-03 17:44 | disposition skilled nursing facility (03) | DRG 640 ==
LOC: ER 18:33 → MEDSURG 18:40
PROVIDERS: Admitting Provider Internal Medicine; Emergency Provider Family Medicine; PCP Emergency Medicine Emergency Medical Services; Visit Provider Internal Medicine
DX: E86.0 Dehydration (principal); G93.41 Metabolic encephalopathy; M62.82 Rhabdomyolysis; C20 Malignant neoplasm of rectum; E87.0 Hyperosmolality and hypernatremia; G47.30 Sleep apnea, unspecified; R00.1 Bradycardia, unspecified; E87.6 Hypokalemia; N50.89 Other specified disorders of the male genital organs; Z66 Do not resuscitate; L97.522 Non-pressure chronic ulcer of other part of left foot with fat layer exposed; L89.159 Pressure ulcer of sacral region, unspecified stage; M06.9 Rheumatoid arthritis, unspecified; Z96.652 Presence of left artificial knee joint
CPT/HCPCS: 36415; 51702; 70450; 71045; 71260; 73562; 74177; 80048; 80053; 81001; 82378; 82550; 82607; 83036; 83605; 83735; 84100; 84145; 84295; 84443; 84484; 85025; 85378; 86140; 87040; 87077; 87150; 87186; 87205; 87426; 93005; 93306; 96372; 97110; 97161; 97167; 97530; 97535; 99285; G0103; J0360; J0696; J1644; J2270; J7030; J7799; Q9967

== ENCOUNTER 2023-12-20 09:05 | Outpatient (CLI) | payer MEDICARE, SELFPAY ==
--- NOTE | 2023-12-20 09:09 | FL_ITS ---
WS: [id number] FL barium swallow modifd 10920 REASON FOR EXAM: Other dysphagia FLUOROSCOPY TIME: 3min [phone] # OF SPOT FILMS: None FINDINGS: The examination was supervised by the speech therapy department. With the patient in the sitting upright position and lateral projection, multiple swallows of varying consistency barium were monitored fluoroscopically and video recorded. A detailed report of the swallowing will be rendered by the speech therapy department. FL/FL barium swallow modifd 91195 IMPRESSION: Modified barium swallow as above.
== END 2023-12-20 09:06 | disposition home or self-care (01) ==
LOC: RAD 09:05
PROVIDERS: PCP Emergency Medicine Emergency Medical Services; Visit Provider Internal Medicine
DX: R13.10 Dysphagia, unspecified (principal)
CPT/HCPCS: 74230; 92611

== ENCOUNTER 2024-04-20 15:14 | Emergency (ER) | payer MEDICARE, SELFPAY ==
[2024-04-20 15:21] VITALS: BP 127/79; PULSE 65; TEMP 36.9; O2SAT 97; BMI 19.8
--- NOTE | 2024-04-20 16:55 | ED_ITS ---
HPI - Male Genitourinary General: Chief complaint: Urogenital-Male Stated complaint: Cath came out Time Seen by Provider: 04/20/24 15:51 Source: patient and family Mode of arrival: ambulatory Limitations: no limitations History of Present Illness: Patient is an 83-year-old male who presents to the emergency department with suprapubic catheter dysfunction onset today. Patient had a suprapubic catheter pulled out by accident, they present for replacement. He has no symptoms to report. 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 His urologist is in [place]. MD Complaint: other (Suprapubic catheter dysfunction) Onset (ago): hour(s) Location: abdomen (Suprapubic) Associated symptoms: Deny dysuria, nausea or vomiting Related Data Home Medications Medication Instructions Recorded Confirmed nutritional supplements ea PO 12/14/23 01/03/24 Previous Rx's Medication Instructions Recorded acetaminophen 500 mg tablet 500 mg PO Q4H PRN fever #30 tabs 12/03/23 amlodipine 5 mg tablet 5 mg PO DAILY #60 tabs 12/03/23 bacitracin 500 unit/gram topical 500 unit topical DAILY #144 ea 12/03/23 packet lisinopril 10 mg tablet 10 mg PO DAILY #60 tabs 12/03/23 morphine 15 mg immediate release 15 mg PO BID PRN pain #10 tabs 12/03/23 tablet nystatin 100,000 unit/gram topical 1 applic topical BID #15 grams 12/03/23 powder (Nystop) sennosides 8.6 mg-docusate sodium 2 tab PO BEDTIME #30 tabs 12/03/23 50 mg tablet (Stool Softener-Laxative) tamsulosin 0.4 mg capsule 0.4 mg PO DAILY #60 caps 12/03/23 Allergies Allergy/AdvReac Type Severity Reaction Status Date / Time No Known Allergies Allergy Verified 04/20/24 15:26 Review of Systems General: Reports: 10 or more systems reviewed and unremarkable except in HPI and below Const: Denies: fever(s), chills, change in appetite, change in weight or diaphoresis ENMT: Denies: throat pain or hoarseness Card: Denies: chest pain, palpitations or lightheadedness Resp: Denies: dyspnea, productive cough or wheezing GI: Denies: abdominal pain, nausea, vomiting, diarrhea, constipation, bloating, change in stool character or hematochezia : Reports: other (Dysfunction with suprapubic catheter); Denies: flank pain, difficulty urinating, dysuria, urinary frequency or urinary urgency Musc: Denies: neck pain or back pain Skin/Breast: Denies: rash or new lesions Neuro: Denies: headache(s) or dizziness PFSH ED PFSH: Medical History Rhabdomyolysis Ulcer of left foot with fat layer exposed Arthritis Rheumatoid arthritis Onychodystrophy Surgical History H/O knee surgery History of ankle surgery Social History Lives independently: No Housing: Longterm Physical Exam Const: COMMON NORMALS: no acute distress, average body habitus, patient oriented x3, no limitations, healthy appearing, alert and well nourished GENERAL APPEARANCE: cooperative and comfortable ORIENTATION/CONSCIOUSNESS: Yes awake Neck/C-Spine: COMMON NORMALS: full ROM, supple, no meningeal signs and no JVD Resp: COMMON NORMALS: normal respiratory effort, No retractions, No use of acc essory muscles and clear to auscultation bilaterally AUSCULTATION: clear to auscultation bilaterally, no crackles, no rales, no rhonchi and no wheezes Cardio: COMMON NORMALS: no JVD, regular rate, regular rhythm, S1 normal heart sound present, S2 normal heart sound present, No gallops present (Cardio), No clicks present (Cardio), No murmurs present (Cardio), No rub (Cardio) and Peripheral pulses 2+ throughout RATE: regular rate RHYTHM: regular rhythm HEART SOUNDS: S1 normal heart sound present and S2 normal heart sound present PERIPHERAL PULSES: Peripheral pulses 2+ throughout GI: COMMON NORMALS: Normal to inspection, nondistended, normoactive bowel sounds present, Soft to palpation, non-tender, No hepatosplenomegaly present and no masses AUSCULTATION: Yes normoactive bowel sounds PALPATION: Yes Soft to palpation, No Guarding due to palpation present (GI), No Rigid due to palpation and Yes No hepatosplenomegaly present RECTAL EXAM: Yes deferred : COMMON NORMALS: Yes no CVA tenderness BLADDER/KIDNEY EXAM: Yes no CVA tenderness OTHER: Suprapubic stoma with no active bleeding or drainage Back/Pelvis: COMMON NORMALS: no CVA tenderness Extremity: COMMON NORMALS: normal to inspection and full ROM Neuro: COMMON NORMALS: patient oriented x3, moves all extremities, no focal motor deficits and no sensory deficits noted SENSORIUM/ORIENTATION: Yes alert MENINGEAL SIGNS: Yes no meningeal signs Procedures Catheter Insertion (Urinary) Date of insertion: 04/20/24 Time of insertion: 16:45 Reason for placing: Yes Reason for placing indwelling catheter: Other (Previous suprapubic catheter got dislodged) Antiseptic solution prep: Povidone-Iodine Catheter type/location: Suprapubic Size (Swedish): 12 Procedure performed: without complications Complications: None Comment: No urinary return, however patient had urinated twice while here in the ED Course Vital Signs: Vital signs: Vital Signs Temperature 98.4 F 04/20/24 15:21 Pulse Rate 65 04/20/24 15:21 Blood Pressure 127/79 04/20/24 15:21 Pulse Oximetry 97 04/20/24 15:21 Oxygen Delivery Me thod Room Air 04/20/24 15:21 MDM - Male Medical Decision Making Patient presented for replacement of suprapubic catheter. No complaints. He sees urology in [place]. This suprapubic catheter was replaced by nursing staff with a size 12 catheter, there was no drawback of urine however it is likely patient's bladder is empty after urinating twice here in the emergency department. He will closely follow-up with his urologist in the [place]. He will return with any new or worsening, this was discussed with patient's family in the room as well. No radiology studies performed this visit Discharge Plan Discharge Patient Disposition: Home Clinical Impression: Suprapubic catheter dysfunction Condition: Stable Prescriptions: No Action lidocaine HCl [Lidocaine Viscous] 2 % solution 1 applic topical ONCE Qty: 1 0RF lidocaine HCl [Lidocaine Viscous] 2 % solution 1 applic topical ONCE Qty: 1 0RF nutritional supplements Powder In Packet PO acetaminophen 500 mg Tablet 500 mg PO Q4H PRN (Reason: fever) Qty: 30 0RF bacitracin 500 unit/gram Packet 500 unit topical DAILY Qty: 144 0RF Rx Instructions: Apply around scrotal area, sacral area Nystop 100,000 unit/gram Powder 1 applic topical BID Qty: 15 0RF Stool Softener-Laxative 8.6-50 mg Tablet 2 tab PO BEDTIME Qty: 30 0RF lisinopril 10 mg tablet 10 mg PO DAILY Qty: 60 0RF amlodipine 5 mg tablet 5 mg PO DAILY Qty: 60 0RF morphine 15 mg tablet 15 mg PO BID PRN (Reason: pain) Qty: 10 0RF tamsulosin 0.4 mg capsule 0.4 mg PO DAILY Qty: 60 0RF Discharge Orders: Discharge ED (Routine); Ordered 04/20/24 Ordered By: Andre Madison Referrals: Waldo Naylor MD [Primary Care Provider] - Patient Instructions: How to Care for Your Suprapubic Catheter (DC) Activity Restrictions/Additional Instructions: Follow-up with your urologist closely as discussed. Return with any lack of urinary output, significant pain, fevers, or other concerning symptoms. Coding Level of Care Code ED Health Information Tech for Jolene Kinsey
[2024-04-20 17:35] VITALS: BP 155/96; PULSE 59; RESP 16; O2SAT 98
== END 2024-04-20 17:38 | disposition home or self-care (01) ==
PROVIDERS: Emergency Provider Physician Assistant; PCP Internal Medicine
DX: T83.028A Displacement of other urinary catheter, initial encounter (principal); X58.XXXA Exposure to other specified factors, initial encounter
CPT/HCPCS: 51702; 99283